=== PATIENT | male | born 1965 | race Hispanic/Latino ===

== ENCOUNTER 2020-10-11 09:42 | Inpatient (IN) | payer OTHER, SELFPAY ==
[2020-10-11] MEDS ORDERED: Fentanyl 100 MCG/2 ML VIAL ONE ×4 (09:59→22:13)
[2020-10-11] MEDS ORDERED: Boostrix 0.5 ML (Tdap) VIAL ONE (09:59)
[2020-10-11] MEDS ORDERED: Iopamidol 370 76% 100 ML VIAL ONE (10:10)
[2020-10-11 10:12] LABS: #Basophils 0.1 thou/uL (0.0-0.2); #Eosinphils 0.2 thou/uL (0.0-0.7); #Lymphocytes 2.1 thou/uL (1.20-3.40); #Monocytes 0.9 thou/uL (0.11-0.59); #Neutrophils 13.1 thou/uL (1.40-6.50); %Basophils 0.4 % (0.0-1.0); %Lymphocytes 12.9 % (21.0-51.0); %Monocytes 5.4 % (0.0-10.0); %Neutrophils 80.2 % (42.0-75.0); Hemoglobin 14.8 g/dL (14.0-18.0); Mean Corpuscular HGB CONC 32.9 g/dL (32.0-36.0); Mean Corpuscular Hemoglobin 30.3 pg (27.0-31.0); Platelet Count 277 thou/uL (130-400); RBC Distribution Width 11.7 % (11.5-14.5); Red Blood Cell (RBC) Count 4.89 mill/uL (4.70-6.10); White Blood Cell (WBC) Count 16.3 thou/uL (4.8-10.8)
[2020-10-11 10:21] LABS: ALT (SGPT) 67 U/L (8-55); AST (SGOT) 70 U/L (5-34); Albumin 3.9 g/dL (3.5-5.0); Alkaline Phosphatase 79 U/L (40-110); Anion Gap 16 mmol/L (10-20); BUN (Urea Nitrogen) 17 mg/dL (8.4-25.7); Bilirubin, Total 0.6 mg/dL (0.2-1.2); Calc. Creatinine Clearance 0 mL/min (70-130); Calcium 8.4 mg/dL (7.8-10.44); Carbon Dioxide 20 mmol/L (22-29); Chloride 103 mmol/L (98-107); Globulin 3.1 g/dL (2.4-3.5); Glucose 239 mg/dL (70-105); Potassium 3.5 mmol/L (3.5-5.1); Sodium 135 mmol/L (136-145)
[2020-10-11 10:51] LABS: INR-International Normal Ratio 1.1; Prothrombin Time 13.7 sec (12.0-14.7)
[2020-10-11] MEDS ORDERED: CEFAZOLIN 2 GM in Premix Bag 1 BAG IVPB SCH (11:00)
[2020-10-11 11:51] LABS: SARS-CoV-2 NAA Rapid Test Not Detected (NotDetected)
[2020-10-11 12:20] LABS: Hemoglobin A1c 5.5 % (4.0-6.0)
[2020-10-11] MEDS ORDERED: Morphine 2 MG/ML VIAL SLOW IVP PRN (12:20)
[2020-10-11] MEDS ORDERED: Ondansetron PF 4 MG/2 ML Vial IVP PRN (12:20)
[2020-10-11] MEDS ORDERED: Dextrose 50% Abboject 50 ML SYRINGE SLOW IVP PRN (12:20)
[2020-10-11] MEDS ORDERED: hydrALAZINE 20 MG/ML VIAL SLOW IVP PRN (12:20)
[2020-10-11] MEDS ORDERED: Insulin Regular 300 UNITS/3 ML VIAL SC PRN ×2 (12:20)
[2020-10-11] MEDS ORDERED: Dextrose 5% in Water 1,000 ML IV PRN (12:20)
[2020-10-11] MEDS ORDERED: CEFAZOLIN 1 GM VIAL ONE (12:21)
[2020-10-11] MEDS ORDERED: Cyclobenzaprine 10 MG TAB PO PRN (12:24)
[2020-10-11 12:26] LABS: Phosphorus 2.6 mg/dL (2.3-4.7)
[2020-10-11 12:46] LABS: Bacteria/HPF 3+ HPF (None Seen); Bilirubin Negative (Negative); Blood, Urine 1+ (Negative); Clarity Clear (Clear); Glucose, Urine (Dipstick) Normal (Negative); Ketone, Urine Negative (Negative); Leukocyte Negative Leu/uL (Negative); Nitrite Negative (Negative); Protein, Urine (Dipstick) 30 mg/dL (Neg-Trace); Squamous Epithelial None Seen HPF (0-3); Urobilinogen Normal mg/dL (Less than 2)
[2020-10-11 12:51] LABS: Specific Gravity, Urine 1.046 (1.002-1.036)
[2020-10-11 12:54] LABS: Sperm/HPF 2+ HPF (None Seen)
[2020-10-11] MEDS: Acetaminophen 500 MG TAB PO SCH ×2 (14:52→22:45)
[2020-10-11] MEDS ORDERED: Magnesium 2 GM/50 ML 2 GM in Premix Bag 1 BAG IVPB SCH (15:00)
[2020-10-11 15:11] LABS: Lactic Acid 4.7 mmol/L (0.5-2.2)
[2020-10-11] MEDS ORDERED: Sodium Chloride 0.9% 1,000 ML IV SCH (15:15)
[2020-10-11 15:44] VITALS: BMI 32.1
[2020-10-11] MEDS: Sodium Chloride 0.9% 1,000 ML IV SCH ×2 (16:43→22:45)
[2020-10-11] MEDS: Ketorolac Tromethamine 30 MG/ML VIAL IVP SCH ×2 (17:24→23:45)
[2020-10-11] MEDS: traMADol HCl 50 MG TAB PO SCH ×2 (17:24→23:45)
[2020-10-11] MEDS ORDERED: Fentanyl 250 MCG/5 ML VIAL ONE (19:08)
[2020-10-11] MEDS ORDERED: Rocuronium Bromide 10 MG/ML (10ML VIAL) ONE (19:35)
[2020-10-11] MEDS ORDERED: Lidocaine 1% PF 5 ML VIAL ONE (19:35)
[2020-10-11] MEDS ORDERED: Ondansetron PF 4 MG/2 ML Vial ONE (19:35)
[2020-10-11] MEDS ORDERED: PROPOFOL 200 MG/20 ML VIAL ONE (19:35)
[2020-10-11] MEDS ORDERED: Dexamethasone 20 MG/5 ML VIAL ONE (19:35)
[2020-10-11] MEDS ORDERED: SUGAMMADEX SODIUM 200 MG/2 ML VIAL ONE (21:24)
[2020-10-11] MEDS ORDERED: HYDROmorphone 2 MG/ML VIAL SLOW IVP PRN (21:41)
[2020-10-11] MEDS ORDERED: Ondansetron HCl/PF 4 MG/2 ML Vial IVP PRN (21:41)
[2020-10-11] MEDS ORDERED: Promethazine HCl 25 MG/ML VIAL IM PRN (21:41)
[2020-10-11] MEDS ORDERED: Promethazine HCl 25 MG/ML VIAL IVPB PRN (21:41)
[2020-10-11] MEDS: Famotidine 20 MG TAB PO SCH (22:46)
[2020-10-11] MEDS: Senokot S 8.6-50 MG TAB PO SCH (22:46)
[2020-10-11] MEDS: CEFAZOLIN 2 GM in Premix Bag 1 BAG IVPB SCH (22:59)
[2020-10-11 23:13] LABS: Hemoglobin 11.4 g/dL (14.0-18.0); Mean Corpuscular HGB CONC 33.9 g/dL (32.0-36.0); Mean Corpuscular Hemoglobin 31.1 pg (27.0-31.0); Mean Corpuscular Volume 91.7 fL (78.0-98.0); Mean Platelet Volume 6.8 fL (7.4-10.4); Platelet Count 241 thou/uL (130-400); RBC Distribution Width 11.8 % (11.5-14.5); Red Blood Cell (RBC) Count 3.67 mill/uL (4.70-6.10); White Blood Cell (WBC) Count 10.6 thou/uL (4.8-10.8)
[2020-10-11 23:20] LABS: Lactic Acid 3.4 mmol/L (0.5-2.2)
[2020-10-11 23:30] LABS: Anion Gap 16 mmol/L (10-20); BUN (Urea Nitrogen) 17 mg/dL (8.4-25.7); CK (CPK) 2076 U/L (30-200); Calc. Creatinine Clearance 115 mL/min (70-130); Calcium 7.1 mg/dL (7.8-10.44); Carbon Dioxide 16 mmol/L (22-29); Chloride 107 mmol/L (98-107); Glucose 165 mg/dL (70-105); Potassium 4.9 mmol/L (3.5-5.1); Sodium 134 mmol/L (136-145)
[2020-10-12] MEDS: Acetaminophen 500 MG TAB PO SCH ×4 (01:12→20:48)
[2020-10-12] MEDS: Sodium Chloride 0.9% 1,000 ML IV SCH (03:45)
[2020-10-12] MEDS: traMADol HCl 50 MG TAB PO SCH ×3 (05:09→17:13)
[2020-10-12] MEDS: Ketorolac Tromethamine 30 MG/ML VIAL IVP SCH ×3 (05:09→17:14)
[2020-10-12] MEDS: CEFAZOLIN 2 GM in Premix Bag 1 BAG IVPB SCH ×2 (05:09→14:25)
[2020-10-12 05:32] LABS: #Lymphocytes 0.8 thou/uL (1.20-3.40); #Monocytes 0.5 thou/uL (0.11-0.59); #Neutrophils 7.5 thou/uL (1.40-6.50); %Eosinophils 0.1 % (0.0-10.0); %Lymphocytes 9.5 % (21.0-51.0); %Monocytes 5.1 % (0.0-10.0); %Neutrophils 85.3 % (42.0-75.0); Mean Corpuscular HGB CONC 34.1 g/dL (32.0-36.0); Mean Corpuscular Hemoglobin 31.3 pg (27.0-31.0); Mean Corpuscular Volume 91.6 fL (78.0-98.0); Mean Platelet Volume 6.9 fL (7.4-10.4); Platelet Count 207 thou/uL (130-400); RBC Distribution Width 11.7 % (11.5-14.5); Red Blood Cell (RBC) Count 3.19 mill/uL (4.70-6.10); White Blood Cell (WBC) Count 8.8 thou/uL (4.8-10.8)
[2020-10-12 05:55] LABS: Lactic Acid 3.8 mmol/L (0.5-2.2)
[2020-10-12 06:05] LABS: Anion Gap 11 mmol/L (10-20); BUN (Urea Nitrogen) 17 mg/dL (8.4-25.7); Calc. Creatinine Clearance 122 mL/min (70-130); Calcium 7.3 mg/dL (7.8-10.44); Carbon Dioxide 19 mmol/L (22-29); Chloride 106 mmol/L (98-107); Glucose 207 mg/dL (70-105); Magnesium 2.5 mg/dL (1.6-2.6); Potassium 4.6 mmol/L (3.5-5.1); Sodium 131 mmol/L (136-145)
[2020-10-12 06:40] LABS: CK (CPK) 2127 U/L (30-200); Phosphorus 3.6 mg/dL (2.3-4.7)
[2020-10-12] MEDS: Famotidine 20 MG TAB PO SCH ×2 (07:52→20:47)
[2020-10-12] MEDS: Senokot S 8.6-50 MG TAB PO SCH ×2 (07:52→20:46)
[2020-10-12] MEDS: traMADol HCl 50 MG TAB PO PRN (07:52)
[2020-10-12] MEDS: Polyethylene Glycol 3350 17 GM Packet PO SCH (07:53)
[2020-10-12] MEDS: Metoprolol Tartrate 50 MG TAB PO SCH (20:47)
[2020-10-12] MEDS ORDERED: Atorvastatin Calcium 40 MG TAB PO SCH (21:00)
[2020-10-13] MEDS: traMADol HCl 50 MG TAB PO SCH ×3 (01:01→12:36)
[2020-10-13] MEDS: Ketorolac Tromethamine 30 MG/ML VIAL IVP SCH ×2 (01:02→06:03)
[2020-10-13] MEDS: Acetaminophen 500 MG TAB PO SCH ×2 (01:02→08:41)
[2020-10-13] MEDS: Metoprolol Tartrate 50 MG TAB PO SCH (08:41)
[2020-10-13] MEDS: Famotidine 20 MG TAB PO SCH (08:41)
[2020-10-13] MEDS: Senokot S 8.6-50 MG TAB PO SCH (08:42)
[2020-10-13] MEDS: Polyethylene Glycol 3350 17 GM Packet PO SCH (08:42)
[2020-10-13] MEDS ORDERED: Aspirin 81 mg Enteric Coated Tablet PO SCH (09:00)
[2020-10-13 11:48] VITALS: BP 111/68; TEMP 98.1
[2020-10-13] MEDS: traMADol HCl 50 MG TAB PO PRN (12:37)
== END 2020-10-13 15:22 | disposition home or self-care (01) | DRG 481 ==
LOC: ERS 09:42 → SURG A 11:37
PROVIDERS: ADMIT Surgery; ATTEND Surgery
PROC: 0QS606Z Reposition Right Upper Femur with Intramedullary Internal Fixation Device, Open Approach (ICD-10-PCS; principal; 2020-10-11)
DX: S72.21XA Displaced subtrochanteric fracture of right femur, initial encounter for closed fracture (principal); E87.1 Hypo-osmolality and hyponatremia; S20.219A Contusion of unspecified front wall of thorax, initial encounter; S00.03XA Contusion of scalp, initial encounter; S00.33XA Contusion of nose, initial encounter; I10 Essential (primary) hypertension; E78.5 Hyperlipidemia, unspecified; Z20.822 Contact with and (suspected) exposure to COVID-19; Z95.5 Presence of coronary angioplasty implant and graft; V49.40XA Driver injured in collision with unspecified motor vehicles in traffic accident, initial encounter
CPT/HCPCS: 0240U; 36415; 36416; 70450; 70486; 71045; 71260; 72125; 72170; 74177; 76000; 80048; 80053; 81003; 81015; 82550; 83036; 83605; 83735; 84100; 84484; 85025; 85610; 86850; 86900; 86901; 87086; 90715; 93005; 96365; 96366; 96375; 96376; C1713; G0390; J0690; J1100; J1885; J2270; J2405; J2704; J3010; J3475; J7030; Q9967